=== PATIENT | male | born 1985 | race Caucasian/White ===

== ENCOUNTER 2016-12-29 23:27 | Emergency (ER) | payer OTHER ==
[~2016-12-29] VITALS: Ht 182.9 cm; Wt 144.5 kg
[~2016-12-29 23:27] MED LIST: BACLOFEN10 MG PO; BACTRIM DS PO; BACTRIM,SEPT1 TABLET PO; CLEOCIN300 MG PO; CLINDAMYCIN HC150 MG PO; FLEXERIL5 MG PO; INDOCIN25 MG PO; KEFLEX500 MG PO; KEFLEX750 MG PO; METHADONE10 MG/1 M1 PO; MOTRIN600 MG PO; MOTRIN800 MG PO; Methadone PO; NAPROSYN500 MG PO; NO HOME MEDS; SUBUTEX PO; VALIUM5 MG PO; ZOFRAN ODT4 MG PO
[2016-12-30 00:23] LABS: HEMATOCRIT 39.2 % (38.0-50.0); MCH 29.7 PG (29.0-34.0); MCHC 34.9 G/DL (30.0-36.0); MCV 84.8 FL (86-99); PLATELET COUNT 232 K/uL (156-360); RBC DIS.WIDTH-CV 12.6 % (11.8-14.6); RBC DIS.WIDTH-SD 38.6 % (39-53); RED BLOOD COUNT 4.62 M/uL (4.00-5.50); WHITE BLOOD COUNT 7.7 K/uL (4.1-10.2)
[2016-12-30 00:48] LABS: CHLORIDE 111 mEq/L (99-109); POTASSIUM 4.3 mEq/L (3.7-5.4); SODIUM 142 mEq/L (136-147)
[2016-12-30 00:51] LABS: GLUCOSE 80 mg/dL (70-99)
[2016-12-30 00:52] LABS: ANION GAP 9 MEQ/L (2-14)
[2016-12-30 00:53] LABS: TOTAL BILIRUBIN 0.7 mg/dL (0.0-1.0)
[2016-12-30 00:54] LABS: ALKALINE PHOSPHATASE 120 IU/L (3-129); GFR ESTIMATE (CALCULATED) > 59 mL/min/
[2016-12-30 00:55] LABS: UREA NITROGEN (BUN) 14 mg/dL (9-23)
[2016-12-30 02:35] LABS: SERUM ETHYL ALCOHOL < 10 mg/dL
[2016-12-30] MEDS ORDERED: ADDERALL XR 2525 MG PO (02:39)
[2016-12-30 05:39] VITALS: BP 137/69
== END 2016-12-30 05:42 | disposition home or self-care (01) ==
LOC: EME → EDBD 23:27 → EME 12-30 05:42
PROVIDERS: Emergency Medicine
DX: S01.81XA Laceration without foreign body of other part of head, initial encounter (principal); V48.5XXA Car driver injured in noncollision transport accident in traffic accident, initial encounter; F19.10 Other psychoactive substance abuse, uncomplicated; N28.1 Cyst of kidney, acquired; F17.200 Nicotine dependence, unspecified, uncomplicated
CPT/HCPCS: 70450; 71260; 72125; 74177; 80053; 85027; 99281; 99285; G0480; J2310

== ENCOUNTER 2017-01-26 22:22 | Emergency (ER) | payer OTHER ==
[~2017-01-26] VITALS: Ht 182.9 cm; Wt 132.1 kg
[2017-01-26 22:22] VITALS: BP 148/100
[~2017-01-26 22:22] MED LIST changes: +ADDERALL XR 2525 MG PO
== END 2017-01-27 01:18 | disposition left against medical advice (07) ==
LOC: EME 22:22
DX: T40.1X1A Poisoning by heroin, accidental (unintentional), initial encounter (principal); F11.10 Opioid abuse, uncomplicated; R00.0 Tachycardia, unspecified; R09.02 Hypoxemia; M79.89 Other specified soft tissue disorders; F17.200 Nicotine dependence, unspecified, uncomplicated; Z53.20 Procedure and treatment not carried out because of patient's decision for unspecified reasons
CPT/HCPCS: 99281; 99283; J2310